=== PATIENT | male | born 1985 | race Caucasian/White ===

== ENCOUNTER 2018-10-11 14:36 | Emergency (ER) | payer SELFPAY ==
[~2018-10-11] VITALS: Wt 97.1 kg
[2018-10-11] MEDS ORDERED: LIDOCAINE/MYLANTA 40 ML BTL PO STA (15:22)
[2018-10-11] MEDS ORDERED: BELLADONNA/PHENOBARBITAL TAB PO STA (15:22)
--- NOTE | 2018-10-11 15:49 | ERD ---
ER Documentation Chief Complaint Chief Complaint CP X 3 DAYS HPI This is a 33-year-old male who complains of pain located at the right costosternal margin described as a sharp pinching pain around rib #3. He also states that this pain gets worse when he eats and then when he has the pain he also has pain at the same time at the ball of his right foot. Again, he states when he has a left costosternal pain after eating he has pain at the ball of his right foot. He will also have sharp stabbing pain at this area does not eat. He has no shortness of breath denies any excess stress or anxiety attacks. Denies any epigastric pain no diaphoresis no radiation of pain ROS All systems reviewed and are negative except as per history of present illness. Medications Home Meds Active Scripts Tramadol HCl (Tramadol HCl) 50 Mg Tablet, 50 MG PO Q6, #20 TAB Prov:SULYFABRICIOMPSHYANNELUCRECIAMorris TorresDeidre DO 10/11/18 Omeprazole* (Omeprazole*) 40 Mg Capsule.dr, 40 MG PO DAILY, #10 CAP Prov:SHYANNE RICHARDSOLIVA MelissaDeidre DO 10/11/18 FmHx Family History: No coronary disease Physical Exam Vitals Vital Signs Date Temp Pulse Resp B/P (MAP) Pulse Ox O2 O2 Flow FiO2 Time Delivery Rate 10/11/18 98.6 86 18 136/81 99 14:41 (99) Physical Exam Const: Well-developed, well-nourished Head: Atraumatic, normocephalic Eyes: Normal Conjunctiva, PERRLA, EOMI, normal sclera, no nystagmus ENT: Normal External Ears, Nose and Mouth, moist mucus membranes. Neck: Full range of motion. No meningismus, no lymphadenopathy. Resp: Clear to auscultation bilaterally, no wheezing, rhonchi, rales Cardio: Regular rate and rhythm, no murmurs, S1 S2 present, tenderness to palpation at the third rib on the left costosternal margin is reproducible to palpation Abd: Soft, non tender x 4, non distended. Normal bowel sounds, no guarding or rebound, no pulsitile abdominal masses or bruits Skin: No petechiae or rashes, no ecchymosis , no maculopapular rash Back: No midline or flank tenderness Ext: No cyanosis, or edema, FROM x 4, normal inspection, neurovascularly intact x 4 Neur: Awake and alert, STR 5/ x 4, sensation intact x 4, no focal findings, cerebellum intact Psych: Normal Mood and Affect Result Diagram: 10/11/18 1538 10/11/18 1538 Results 24 hrs Laboratory Tests Test 10/11/18 15:38 White Blood Count 8.6 10^3/ul Red Blood Count 5.50 10^6/ul Hemoglobin 15.8 g/dl Hematocrit 46.1 % Mean Corpuscular Volume 83.8 fl Mean Corpuscular Hemoglobin 28.7 pg Mean Corpuscular Hemoglobin Concent 34.3 g/dl Red Cell Distribution Width 12.3 % Platelet Count 289 10^3/UL Mean Platelet Volume 9.6 fl Immature Granulocytes % 0.500 % Neutrophils % 65.6 % Lymphocytes % 24.8 % Monocytes % 7.8 % Eosinophils % 1.0 % Basophils % 0.3 % Nucleated Red Blood Cells % 0.0 /100WBC Immature Granulocytes # 0.040 10^3/ul Neutrophils # 5.7 10^3/ul Lymphocytes # 2.1 10^3/ul Monocytes # 0.7 10^3/ul Eosinophils # 0.1 10^3/ul Basophils # 0.0 10^3/ul Nucleated Red Blood Cells # 0.0 10^3/ul Sodium Level 142 mmol/L Potassium Level 4.0 mmol/L Chloride Level 106 mmol/L Carbon Dioxide Level 28 mmol/L Anion Gap 8 Blood Urea Nitrogen 15 mg/dl Creatinine 0.77 mg/dl Est Glomerular Filtrat Rate mL/min > 60 mL/min Glucose Level 103 mg/dl Calcium Level 9.4 mg/dl Troponin I < 0.012 ng/ml Current Medications Medications Dose Sig/Mark Start Time Status Last (Trade) Ordered Route PRN Stop Time Admin Dose Reason Admin 40 ml ONCE STAT 10/11/18 DC 10/11/18 Miscellaneous PO 15:22 10/11/18 15:57 Medication 15:24 (Gi Cocktail (2)) Belladonna/ 2 tab ONCE STAT 10/11/18 DC 10/11/18 Phenobarbital PO 15:22 10/11/18 15:57 () 15:24 Procedures/MDM EKG: Rate/Rhythm: Normal Sinus Rhythm,NL intervals QRS, ST, QT: NORMAL AL, QRS, QT] Impression: NORMAL EKG Ordering MD: SUZANNE RICHARDS DO Location: E/R Room/Bed: PROCEDURE: XR Chest. CLINICAL INDICATION: chest pain TECHNIQUE: Single frontal view of the chest was obtained COMPARISON: None FINDINGS: The heart and mediastinum are within normal limits. The lungs are clear. There is no pleural effusion or pneumothorax. RPTAT: AA IMPRESSION: No acute disease. .Nilton Razo MD, MD Date Time Electronically viewed and signed by .Nilton Razo MD, MD on 10/11/2018 15:48 .S/ CC: SUZANNE RICHARDS DO [id number] Patient clearly has costochondritis on exam. He also has some reflux type symptoms. Discussed diet control and will give a prescription for Ultram for pain and omeprazole for his GI symptoms Cardiac work-up is negative Departure Diagnosis: Primary Impression: Costochondritis Additional Impression: GERD (gastroesophageal reflux disease) Esophagitis presence: esophagitis presence not specified Qualified Codes: K21.9 - Gastro-esophageal reflux disease without esophagitis Condition: Stable SUZANNE RICHARDS DO October 11, 2018 15:49
[2018-10-11] MEDS ORDERED: TRAM50TA2 PO (17:19)
[2018-10-11] MEDS ORDERED: OMEP40CA6 PO (17:19)
[2018-10-11 17:40] VITALS: BP 116/60; PULSE 72; RESP 16
== END 2018-10-11 17:40 | disposition home or self-care (01) ==
LOC: E/R 14:36
DX: M94.0 Chondrocostal junction syndrome [Tietze] (principal); K21.9 Gastro-esophageal reflux disease without esophagitis
CPT/HCPCS: 36415; 71045; 80048; 84484; 85025; 93005